=== PATIENT | male | born 1945 | race Caucasian/White ===

== ENCOUNTER 2019-06-06 04:37 | Emergency (ER) | payer MEDICARE, BC ==
[2019-06-06 04:48] VITALS: BP 152/73; PULSE 67
--- NOTE | 2019-06-06 06:13 | EDM.PDOC ---
ED HPI GENERAL MEDICAL PROBLEM - General Chief Complaint: Genitourinary Problem Stated Complaint: BLOOD IN URINE Time Seen by Provider: 06/06/19 06:00 Source of Information: Reports: Patient, Family History Limitations: Reports: No Limitations - History of Present Illness INITIAL COMMENTS - FREE TEXT/NARRATIVE: 73-year-old male who had bilateral stents placed 4 days ago at [facility], he has a urostomy for the past 10 years after surgery for prostate cancer. He has no symptoms but it's very bloody over the past 6-12 hours so he came in to be checked. No fevers or chills, no pain, no clots or obstruction. It was clear the first 2 days, then turned to a creamy red and now more clear red urine. He has had urostomy stents twice before and has not had this problem which is why he is concerned. He is not on Plavix and aspirin. Onset: Unknown/Unsure (Developed overnight) Associated Symptoms: Reports: No Other Symptoms. Denies: Fever/Chills, Nausea/ Vomiting right flank Pain Score (Numeric/FACES): 3 hands & feet Pain Score (Numeric/FACES): 5 - Related Data Allergies Allergy/AdvReac Type Severity Reaction Status Date / Time nitrofurantoin Allergy Rash Verified 06/06/19 04:43 [From Macrobid] nitrofurantoin Allergy Rash Verified 06/06/19 04:43 macrocrystalline [From Macrobid] Sulfa (Sulfonamide Allergy Rash Verified 06/06/19 04:43 Antibiotics) Home Meds: Home Meds *Multivitamin 1 tab PO DAILY 09/24/13 [History] Gabapentin [Gralise] 1,200 mg PO TID 09/24/13 [History] Insulin Aspart [NovoLOG] 8 - 15 unit SQ TID 09/24/13 [History] Insulin Glarg,Human.Rec.Analog [Lantus] 35 unit SUBCUT QPM 09/24/13 [History] busPIRone [Buspar] 15 mg PO TID 09/24/13 [History] Acetaminophen [Tylenol Extra Strength] 1,000 mg PO BID PRN 08/23/14 [History] Aspirin [Ecotrin EC] 81 mg PO DAILY 08/23/14 [History] Docusate Sodium 100 mg PO BID PRN 08/23/14 [History] Triamcinolone Acetonide [Triamcinolone Acetonide 0.1% Crm] 1 dose TOP TID PRN [History] Insulin Glarg,Human.Rec.Analog [Lantus] 20 unit SUBCUT QAM 04/30/15 [History] Clopidogrel [Plavix] 75 mg PO DAILY 06/06/19 [History] Lactobac Cmb #3/Fos/Pantethine [Probiotic & Acidophilus] 1 each PO DAILY [History] Metoprolol Tartrate [Lopressor] 25 mg PO BID 06/06/19 [History] atorvaSTATin [Lipitor] 20 mg PO BEDTIME 06/06/19 [History] raNITIdine HCl [Ranitidine HCl] 150 mg PO DAILY 06/06/19 [History] Past Medical History HEENT History: Reports: Impaired Vision Cardiovascular History: Reports: CAD, High Cholesterol, Hypertension, NV, PVD, Stents Gastrointestinal History: Reports: Colon Polyp, GERD, GI Bleed Genitourinary History: Reports: Chronic Renal Insuffiency, Pyelonephritis Musculoskeletal History: Reports: Fibromyalgia, Other (See Below) Other Musculoskeletal History: chronic left knee pain Neurological History: Reports: Migraines, Neuropathy, Diabetic Psychiatric History: Reports: Anxiety, Depression, Panic Attack, PTSD Endocrine/Metabolic History: Reports: Diabetes, Type II, Obesity/BMI 30+ Hematologic History: Reports: Anemia, Anticoagulation Therapy, Blood Transfusion (s) Oncologic (Cancer) History: Reports: Bladder, Prostate Dermatologic History: Reports: Other (See Below) Other Dermatologic History: some sort of rash on forearm that comes and goes - Infectious Disease History Infectious Disease History: Reports: C-Difficile, Chicken Pox, Measles, Pertussis (Whooping Cough), Other (See Below) Other Infectious Disease History: infectious hepatitis in 1960s - Past Surgical History Cardiovascular Surgical History: Reports: Coronary Artery Stent GI Surgical History: Reports: Colonoscopy, Small Bowel Male Surgical History: Reports: Cystectomy, Prostatectomy, Ureteral Stent Neurological Surgical History: Reports: Other (See Below) Other Neurological Surgeries/Procedures: L4 L5 stenosis Musculoskeletal Surgical History: Reports: Knee Replacement Social & Family History - Tobacco Use Smoking Status *Q: Former Smoker Used Tobacco, but Quit: Yes Month/Year Tobacco Last Used: 1988 - Caffeine Use Caffeine Use: Reports: Soda - Recreational Drug Use Recreational Drug Use: No ED ROS GENERAL - Review of Systems Review Of Systems: See Below Constitutional: Denies: Fever, Chills Respiratory: Denies: Shortness of Breath Cardiovascular: Denies: Chest Pain GI/Abdominal: Denies: Abdominal Pain : Reports: Hematuria Skin: Reports: No Symptoms ED EXAM, RENAL/ - Physical Exam Exam: See Below Exam Limited By: No Limitations General Appearance: Alert, No Apparent Distress Respiratory/Chest: No Respiratory Distress GI/Abdominal: Soft, Non-Tender (Male) Exam: Other (Urostomy bag has 2 stents in the bag, clear red urine) Neurological: Alert, Oriented Skin Exam: Warm, Dry Course - Vital Signs Last Recorded V/S: Last Vital Signs Temp 98.5 F 06/06/19 04:47 Pulse 67 06/06/19 04:47 Resp 18 06/06/19 04:47 BP 152/73 H 06/06/19 04:47 Pulse Ox 96 06/06/19 04:47 - Orders/Labs/Meds Labs: Laboratory Tests 06/06/19 06/06/19 06/06/19 Range/Units 05:15 05:25 05:25 WBC 9.9 (4.5-11.0) K/uL RBC 4.16 L (4.30-5.90) M/uL Hgb 11.7 L (12.0-15.0) g/dL Hct 35.1 L (40.0-54.0) % MCV 84 (80-98) fL MCH 28 (27-31) pg MCHC 33 (32-36) % Plt Count 185 (150-400) K/uL Neut % (Auto) 75 H (36-66) % Lymph % (Auto) 12 L (24-44) % [place] % (Auto) 10 H (2-6) % Eos % (Auto) 2 (2-4) % Baso % (Auto) 0 (0-1) % PT 10.1 (9.5-12.0) sec INR 0.93 (0.80-1.20) Sodium (140-148) mmol/L Potassium (3.6-5.2) mmol/L Chloride (100-108) mmol/L Carbon Dioxide (21-32) mmol/L Anion Gap (5.0-14.0) mmol/L BUN (7-18) mg/dL Creatinine (0.8-1.3) mg/dL Est Cr Clr Drug Dosing mL/min Estimated GFR (MDRD) (>60) Glucose (74-106) mg/dL Calcium (8.5-10.1) mg/dL Total Bilirubin (0.2-1.0) mg/dL AST (15-37) U/L ALT (12-78) U/L Alkaline Phosphatase (46-116) U/L Total Protein (6.4-8.2) g/dL Albumin (3.4-5.0) g/dL Globulin (2.3-3.5) g/dL Albumin/Globulin Ratio (1.2-2.2) Urine Color Red A (YELLOW) Urine Appearance Cloudy A (CLEAR) Urine pH 7.0 (5.0-8.0) Ur Specific [place] 1.025 (1.008-1.030) Urine Protein >=300 H (NEGATIVE) mg/dL Urine Glucose (UA) 100 H (NEGATIVE) mg/dL Urine Ketones Negative (NEGATIVE) mg/dL Urine Occult Blood Large H (NEGATIVE) Urine Nitrite Negative (NEGATIVE) Urine Bilirubin Negative (NEGATIVE) Urine Urobilinogen Normal (0.2-1.0) EU/dL Ur Leukocyte Esterase Small (NEGATIVE) Urine RBC Packed H (0-5) Urine WBC 0-5 (0-5) Ur Epithelial Cells Not seen Amorphous Sediment Few Urine Bacteria Not seen Urine Mucus Not seen 06/06/19 Range/Units 05:25 WBC (4.5-11.0) K/uL RBC (4.30-5.90) M/uL Hgb (12.0-15.0) g/dL Hct (40.0-54.0) % MCV (80-98) fL MCH (27-31) pg MCHC (32-36) % Plt Count (150-400) K/uL Neut % (Auto) (36-66) % Lymph % (Auto) (24-44) % [place] % (Auto) (2-6) % Eos % (Auto) (2-4) % Baso % (Auto) (0-1) % PT (9.5-12.0) sec INR (0.80-1.20) Sodium 137 L (140-148) mmol/L Potassium 5.8 H (3.6-5.2) mmol/L Chloride 104 (100-108) mmol/L Carbon Dioxide 26 (21-32) mmol/L Anion Gap 12.8 (5.0-14.0) mmol/L BUN 22 H (7-18) mg/dL Creatinine 1.6 H (0.8-1.3) mg/dL Est Cr Clr Drug Dosing 41.73 mL/min Estimated GFR (MDRD) 43 L (>60) Glucose 272 H (74-106) mg/dL Calcium 8.7 (8.5-10.1) mg/dL Total Bilirubin 0.3 (0.2-1.0) mg/dL AST 8 L D (15-37) U/L ALT 19 (12-78) U/L Alkaline Phosphatase 93 (46-116) U/L Total Protein 7.1 (6.4-8.2) g/dL Albumin 2.9 L (3.4-5.0) g/dL Globulin 4.2 H (2.3-3.5) g/dL Albumin/Globulin Ratio 0.7 L (1.2-2.2) Urine Color (YELLOW) Urine Appearance (CLEAR) Urine pH (5.0-8.0) Ur Specific [place] (1.008-1.030) Urine Protein (NEGATIVE) mg/dL Urine Glucose (UA) (NEGATIVE) mg/dL Urine Ketones (NEGATIVE) mg/dL Urine Occult Blood (NEGATIVE) Urine Nitrite (NEGATIVE) Urine Bilirubin (NEGATIVE) Urine Urobilinogen (0.2-1.0) EU/dL Ur Leukocyte Esterase (NEGATIVE) Urine RBC (0-5) Urine WBC (0-5) Ur Epithelial Cells Amorphous Sediment Urine Bacteria Urine Mucus - Re-Assessments/Exams Free Text/Narrative Re-Assessment/Exam: 06/06/19 06:27 A UA was obtained and is grossly bloody but there is no infection present. Hemoglobin is 11.7. 06/06/19 06:28 Creatinine is 1.7, GFR is 43. Potassium 5.8. His condition was discussed with urology at [facility]. 06/06/19 06:39 Conversation with urology was very reassuring. They will return if he develops pain or fever, bleeding can be present for 1-2 weeks after the procedure. Hemoglobin can be rechecked if hematuria continues to seem heavy. Departure - Departure Time of Disposition: 06:47 Disposition: Home, Self-Care 01 Condition: Good Clinical Impression: Hematuria Qualifiers: Hematuria type: gross Qualified Code(s): R31.0 - Gross hematuria - Discharge Information Instructions: Hematuria, Adult Referrals: True Chan MD [Primary Care Provider] - Forms: ED Department Discharge Care Plan Goals: Continue your current medications, urostomy care, and activity as tolerated and return if worsening such as fever or unexplained pain. Also consider rechecking in 3-5 days if hematuria persists to recheck your hemoglobin and vital signs.
== END 2019-06-06 06:48 | disposition home or self-care (01) ==
LOC: JP.ED 04:37
DX: R31.0 Gross hematuria (principal); E11.22 Type 2 diabetes mellitus with diabetic chronic kidney disease; I12.9 Hypertensive chronic kidney disease with stage 1 through stage 4 chronic kidney disease, or unspecified chronic kidney disease; N18.9 Chronic kidney disease, unspecified; D63.1 Anemia in chronic kidney disease; F32.9 Major depressive disorder, single episode, unspecified; F41.9 Anxiety disorder, unspecified; E78.00 Pure hypercholesterolemia, unspecified; Z88.2 Allergy status to sulfonamides; Z79.899 Other long term (current) drug therapy; Z79.82 Long term (current) use of aspirin; Z79.4 Long term (current) use of insulin; Z68.20 Body mass index [BMI] 20.0-20.9, adult; Z86.2 Personal history of diseases of the blood and blood-forming organs and certain disorders involving the immune mechanism; Z88.6 Allergy status to analgesic agent; Z90.6 Acquired absence of other parts of urinary tract; Z90.79 Acquired absence of other genital organ(s); Z87.891 Personal history of nicotine dependence
CPT/HCPCS: 36415; 80053; 81001; 85025; 85610; 99283

== ENCOUNTER 2021-11-11 00:40 | Observation (INO) | payer MEDICARE, BC ==
[2021-11-11 01:41] LABS: CORONAVIRUS COVID-19 NAA NEGATIVE (NEGATIVE)
[2021-11-11] MEDS ORDERED: Sodium Chloride 0.9% 10 ML Syringe FLUSH PRN (02:46)
[2021-11-11] MEDS: cefTRIAXone 1 GM in Sodium Chloride 0.9% 50 ML IV SCH ×2 (03:05→15:17)
[2021-11-11] MEDS ORDERED: Magnesium Hydroxide 400 MG/5 ML Susp 30 ML Cup PO PRN (15:05)
[2021-11-11] MEDS ORDERED: Ondansetron 4 MG/2 ML SDV IV PRN (15:05)
[2021-11-11] MEDS ORDERED: Ondansetron 4 MG Tab.DIS PO PRN (15:05)
[2021-11-11] MEDS ORDERED: Sodium Chloride 0.9% 1,000 ML IV SCH (15:15)
[2021-11-11] MEDS: Insulin Lispro 100 Unit/ML 3 ML KwikPen SUBCUT SCH (17:25)
[2021-11-11] MEDS: Acetaminophen 325 MG Tab PO PRN (20:11)
[2021-11-11] MEDS: Lactobacillus Rhamnosus GG (Probiotic) Cap PO SCH (20:12)
[2021-11-11] MEDS: Gabapentin 400 MG Cap PO SCH (20:12)
[2021-11-11] MEDS: busPIRone 10 MG Tab PO SCH (20:12)
[2021-11-11] MEDS: Metoprolol Tartrate 25 MG Tab PO SCH (20:12)
[2021-11-11] MEDS: atorvaSTATin 20 MG Tab PO SCH (20:12)
[2021-11-11] MEDS: Citalopram 20 MG Tab PO SCH (20:13)
[2021-11-11] MEDS: Insulin Glargine,Human Rec. Analog 100 Units/ML 3 ML Pen SUBCUT SCH (21:10)
[2021-11-12] MEDS: Acetaminophen 325 MG Tab PO PRN (00:20)
[2021-11-12] MEDS: cefTRIAXone 1 GM in Sodium Chloride 0.9% 50 ML IV SCH ×2 (02:25→14:34)
[2021-11-12] MEDS: Metoprolol Tartrate 25 MG Tab PO SCH ×2 (08:48→21:27)
[2021-11-12] MEDS: Aspirin 81 MG Tab.EC PO SCH (08:48)
[2021-11-12] MEDS: Gabapentin 400 MG Cap PO SCH ×3 (08:48→21:26)
[2021-11-12] MEDS: Lactobacillus Rhamnosus GG (Probiotic) Cap PO SCH ×2 (08:48→21:27)
[2021-11-12] MEDS: busPIRone 10 MG Tab PO SCH ×3 (08:48→21:27)
[2021-11-12] MEDS: Insulin Lispro 100 Unit/ML 3 ML KwikPen SUBCUT SCH ×3 (08:49→17:26)
[2021-11-12] MEDS: Insulin Glargine,Human Rec. Analog 100 Units/ML 3 ML Pen SUBCUT SCH ×2 (08:50→21:27)
[2021-11-12] MEDS: atorvaSTATin 20 MG Tab PO SCH (21:26)
[2021-11-12] MEDS: Citalopram 20 MG Tab PO SCH (21:27)
[2021-11-13] MEDS: cefTRIAXone 1 GM in Sodium Chloride 0.9% 50 ML IV SCH (03:22)
[2021-11-13] MEDS: Metoprolol Tartrate 25 MG Tab PO SCH (08:30)
[2021-11-13] MEDS: Aspirin 81 MG Tab.EC PO SCH (08:31)
[2021-11-13] MEDS: Insulin Glargine,Human Rec. Analog 100 Units/ML 3 ML Pen SUBCUT SCH (08:31)
[2021-11-13] MEDS: Lactobacillus Rhamnosus GG (Probiotic) Cap PO SCH (08:31)
[2021-11-13] MEDS: Gabapentin 400 MG Cap PO SCH (08:31)
[2021-11-13] MEDS: busPIRone 10 MG Tab PO SCH (08:31)
[2021-11-13] MEDS: Insulin Lispro 100 Unit/ML 3 ML KwikPen SUBCUT SCH (08:32)
[2021-11-13 10:25] VITALS: BP 104/45; PULSE 60
== END 2021-11-13 11:55 | disposition home health service (06) ==
LOC: JP.ED 00:40 → JP.MS 15:41
PROVIDERS: ADMIT Internal Medicine; ATTEND Internal Medicine
DX: N39.0 Urinary tract infection, site not specified (principal); I25.10 Atherosclerotic heart disease of native coronary artery without angina pectoris; E78.00 Pure hypercholesterolemia, unspecified; I25.2 Old myocardial infarction; I12.9 Hypertensive chronic kidney disease with stage 1 through stage 4 chronic kidney disease, or unspecified chronic kidney disease; E11.22 Type 2 diabetes mellitus with diabetic chronic kidney disease; E66.9 Obesity, unspecified; N18.32 Chronic kidney disease, stage 3b; Z20.822 Contact with and (suspected) exposure to COVID-19; Z88.8 Allergy status to other drugs, medicaments and biological substances; Z88.2 Allergy status to sulfonamides; Z79.899 Other long term (current) drug therapy; Z79.82 Long term (current) use of aspirin; Z79.4 Long term (current) use of insulin; Z90.49 Acquired absence of other specified parts of digestive tract; Z98.890 Other specified postprocedural states
CPT/HCPCS: 0241U; 36415; 80048; 80053; 81001; 82947; 83605; 85025; 85027; 86140; 87086; 87088; 87186; 96365; 96366; 97110; 97116; 97162; 97530; 99285; A9270; J0696; J1815; J2405; J7030

== ENCOUNTER 2022-11-12 18:07 | Inpatient (IN) | payer BC, MEDICARE ==
[2022-11-12] MEDS ORDERED: Sodium Chloride 0.9% 1,000 ML IV SCH (18:30)
[2022-11-12] MEDS ORDERED: cefTRIAXone 2 GM in Sodium Chloride 0.9% 50 ML IV ONE (18:59)
[2022-11-12 19:28] LABS: ESTIMATED GFR 52 mL/min (>60)
[2022-11-12 19:30] LABS: CORONAVIRUS COVID-19 NAA NEGATIVE (NEGATIVE)
[2022-11-12] MEDS: Acetaminophen 325 MG Tab PO PRN (20:27)
[2022-11-12] MEDS ORDERED: Magnesium Hydroxide 400 MG/5 ML Susp 30 ML Cup PO PRN (21:15)
[2022-11-12] MEDS ORDERED: Insulin Lispro 100 Unit/ML 3 ML KwikPen SUBCUT SCH (21:15)
[2022-11-12] MEDS ORDERED: Ondansetron 4 MG Tab.DIS PO PRN (21:15)
[2022-11-12] MEDS ORDERED: Ondansetron 4 MG/2 ML SDV IV PRN (21:15)
[2022-11-12] MEDS ORDERED: Melatonin 3 MG Tab PO PRN (21:15)
[2022-11-12] MEDS: Gabapentin 300 MG Cap PO SCH (21:51)
[2022-11-12] MEDS: Nystatin Topical Powder 15 GM Bottle TOP SCH (21:57)
[2022-11-12] MEDS: Insulin Lispro 100 Unit/ML 3 ML KwikPen SUBCUT SCH (21:59)
[2022-11-12] MEDS ORDERED: Citalopram 20 MG Tab PO SCH (22:00)
[2022-11-12] MEDS ORDERED: busPIRone 5 MG Tab PO SCH (22:00)
[2022-11-12] MEDS ORDERED: cefTRIAXone 1 GM in Sodium Chloride 0.9% 50 ML IV SCH (23:00)
[2022-11-13] MEDS: Sodium Chloride 0.9% 1,000 ML IV SCH (00:14)
[2022-11-13] MEDS: Acetaminophen 325 MG Tab PO PRN (03:06)
[2022-11-13] MEDS: Nystatin Topical Powder 15 GM Bottle TOP SCH ×4 (05:54→21:13)
[2022-11-13] MEDS ORDERED: cefTRIAXone 1 GM in Sodium Chloride 0.9% 50 ML IV SCH ×2 (07:00→08:00)
[2022-11-13] MEDS: Insulin Lispro 100 Unit/ML 3 ML KwikPen SUBCUT SCH ×4 (07:50→21:06)
[2022-11-13] MEDS: Lactobacillus Rhamnosus GG (Probiotic) Cap PO SCH ×2 (08:20→20:08)
[2022-11-13] MEDS: Aspirin 81 MG Tab.EC PO SCH (08:20)
[2022-11-13] MEDS: busPIRone 10 MG Tab PO SCH ×3 (08:20→20:08)
[2022-11-13] MEDS: Metoprolol Tartrate 50 MG Tab PO SCH ×2 (08:21→20:08)
[2022-11-13] MEDS: Gabapentin 300 MG Cap PO SCH ×3 (08:21→20:08)
[2022-11-13] MEDS: Enoxaparin 40 MG/0.4 ML Syringe SUBCUT SCH (08:21)
[2022-11-13] MEDS: Cholecalciferol (Vitamin D3) 25 MCG Tab PO SCH (08:22)
[2022-11-13] MEDS: Insulin Glargine,Human Rec. Analog 100 Units/ML 3 ML Pen SUBCUT SCH ×2 (08:27→21:08)
[2022-11-13] MEDS ORDERED: Insulin Glargine,Human Rec. Analog 100 Units/ML 3 ML Pen SUBCUT SCH (09:00)
[2022-11-13] MEDS ORDERED: Ciprofloxacin in D5W 400 MG in Premix Bag 1 BAG IV ONE ×2 (09:00)
[2022-11-13] MEDS: atorvaSTATin 20 MG Tab PO SCH (20:08)
[2022-11-13] MEDS: Citalopram 10 MG Tab PO SCH (20:08)
[2022-11-14] MEDS: Sodium Chloride 0.9% 1,000 ML IV SCH (04:20)
[2022-11-14] MEDS: Nystatin Topical Powder 15 GM Bottle TOP SCH ×4 (05:24→21:23)
[2022-11-14] MEDS: Insulin Lispro 100 Unit/ML 3 ML KwikPen SUBCUT SCH ×4 (08:13→21:03)
[2022-11-14] MEDS: busPIRone 10 MG Tab PO SCH ×3 (08:13→20:34)
[2022-11-14] MEDS: Lactobacillus Rhamnosus GG (Probiotic) Cap PO SCH ×2 (08:13→20:34)
[2022-11-14] MEDS: Aspirin 81 MG Tab.EC PO SCH (08:14)
[2022-11-14] MEDS: Enoxaparin 40 MG/0.4 ML Syringe SUBCUT SCH (08:14)
[2022-11-14] MEDS: Gabapentin 300 MG Cap PO SCH ×3 (08:14→20:33)
[2022-11-14] MEDS: Metoprolol Tartrate 50 MG Tab PO SCH ×2 (08:14→20:35)
[2022-11-14] MEDS: Cholecalciferol (Vitamin D3) 25 MCG Tab PO SCH (08:14)
[2022-11-14] MEDS: Insulin Glargine,Human Rec. Analog 100 Units/ML 3 ML Pen SUBCUT SCH ×2 (08:16→21:04)
[2022-11-14] MEDS: Ciprofloxacin in D5W 400 MG in Premix Bag 1 BAG IV SCH ×2 (13:16)
[2022-11-14] MEDS: atorvaSTATin 20 MG Tab PO SCH (20:34)
[2022-11-14] MEDS: Citalopram 10 MG Tab PO SCH (20:35)
[2022-11-15] MEDS: Ciprofloxacin in D5W 400 MG in Premix Bag 1 BAG IV SCH ×4 (00:21→13:58)
[2022-11-15] MEDS: Nystatin Topical Powder 15 GM Bottle TOP SCH ×4 (06:22→21:24)
[2022-11-15] MEDS: Insulin Lispro 100 Unit/ML 3 ML KwikPen SUBCUT SCH ×4 (07:27→21:17)
[2022-11-15] MEDS: Enoxaparin 40 MG/0.4 ML Syringe SUBCUT SCH (08:02)
[2022-11-15] MEDS: Lactobacillus Rhamnosus GG (Probiotic) Cap PO SCH ×2 (08:03→21:23)
[2022-11-15] MEDS: busPIRone 10 MG Tab PO SCH ×3 (08:03→21:23)
[2022-11-15] MEDS: Gabapentin 300 MG Cap PO SCH ×3 (08:03→21:23)
[2022-11-15] MEDS: Cholecalciferol (Vitamin D3) 25 MCG Tab PO SCH (08:03)
[2022-11-15] MEDS: Metoprolol Tartrate 50 MG Tab PO SCH ×2 (08:04→21:24)
[2022-11-15] MEDS: Aspirin 81 MG Tab.EC PO SCH (08:04)
[2022-11-15] MEDS: Insulin Glargine,Human Rec. Analog 100 Units/ML 3 ML Pen SUBCUT SCH ×2 (08:05→21:23)
[2022-11-15] MEDS: Citalopram 10 MG Tab PO SCH (21:23)
[2022-11-15] MEDS: atorvaSTATin 20 MG Tab PO SCH (21:23)
[2022-11-16] MEDS: Ciprofloxacin in D5W 400 MG in Premix Bag 1 BAG IV SCH ×4 (00:27→12:12)
[2022-11-16] MEDS: Nystatin Topical Powder 15 GM Bottle TOP SCH ×2 (05:53→09:20)
[2022-11-16] MEDS: Insulin Lispro 100 Unit/ML 3 ML KwikPen SUBCUT SCH ×2 (07:45→12:07)
[2022-11-16] MEDS: busPIRone 10 MG Tab PO SCH ×2 (08:03→13:05)
[2022-11-16] MEDS: Insulin Glargine,Human Rec. Analog 100 Units/ML 3 ML Pen SUBCUT SCH (08:03)
[2022-11-16] MEDS: Lactobacillus Rhamnosus GG (Probiotic) Cap PO SCH (08:03)
[2022-11-16] MEDS: Cholecalciferol (Vitamin D3) 25 MCG Tab PO SCH (08:03)
[2022-11-16] MEDS: Gabapentin 300 MG Cap PO SCH ×2 (08:04→13:05)
[2022-11-16] MEDS: Metoprolol Tartrate 50 MG Tab PO SCH (08:04)
[2022-11-16] MEDS: Enoxaparin 40 MG/0.4 ML Syringe SUBCUT SCH (08:04)
[2022-11-16] MEDS: Aspirin 81 MG Tab.EC PO SCH (08:04)
[2022-11-16 10:08] VITALS: BP 143/51; PULSE 54
== END 2022-11-16 15:10 | disposition home or self-care (01) | DRG 872 ==
LOC: JP.ED 18:07 → JP.MS 21:00
PROVIDERS: ADMIT Internal Medicine; ATTEND Hospitalist
DX: A41.51 Sepsis due to Escherichia coli [E. coli] (principal); R53.1 Weakness; N39.0 Urinary tract infection, site not specified; I10 Essential (primary) hypertension; E11.9 Type 2 diabetes mellitus without complications; Z68.41 Body mass index [BMI] 40.0-44.9, adult; T83.593A Infection and inflammatory reaction due to other urinary stents, initial encounter; N18.32 Chronic kidney disease, stage 3b; G30.9 Alzheimer's disease, unspecified; Z20.822 Contact with and (suspected) exposure to COVID-19; F02.80 Dementia in other diseases classified elsewhere, unspecified severity, without behavioral disturbance, psychotic disturbance, mood disturbance, and anxiety; H54.7 Unspecified visual loss; E78.00 Pure hypercholesterolemia, unspecified; I25.10 Atherosclerotic heart disease of native coronary artery without angina pectoris; Z93.6 Other artificial openings of urinary tract status; E11.51 Type 2 diabetes mellitus with diabetic peripheral angiopathy without gangrene; K21.9 Gastro-esophageal reflux disease without esophagitis; M79.7 Fibromyalgia; G89.29 Other chronic pain; M25.562 Pain in left knee; G43.909 Migraine, unspecified, not intractable, without status migrainosus; E11.40 Type 2 diabetes mellitus with diabetic neuropathy, unspecified; F41.9 Anxiety disorder, unspecified; F32.A Depression, unspecified; F43.10 Post-traumatic stress disorder, unspecified; E66.9 Obesity, unspecified; Z96.0 Presence of urogenital implants; Z96.659 Presence of unspecified artificial knee joint; D64.9 Anemia, unspecified; Z79.01 Long term (current) use of anticoagulants; Z85.46 Personal history of malignant neoplasm of prostate; Z98.890 Other specified postprocedural states; Z85.51 Personal history of malignant neoplasm of bladder; Z79.4 Long term (current) use of insulin; Z79.899 Other long term (current) drug therapy; Z79.82 Long term (current) use of aspirin; Z88.1 Allergy status to other antibiotic agents; Z88.2 Allergy status to sulfonamides; I25.2 Old myocardial infarction; Z95.5 Presence of coronary angioplasty implant and graft; Z86.010 Personal history of colon polyps; Z86.19 Personal history of other infectious and parasitic diseases; Z87.891 Personal history of nicotine dependence; Z23 Encounter for immunization; Y83.9 Surgical procedure, unspecified as the cause of abnormal reaction of the patient, or of later complication, without mention of misadventure at the time of the procedure
CPT/HCPCS: 0241U; 36415; 71045; 71045-26; 80048; 80053; 81001; 82947; 83605; 85025; 85027; 87040; 87086; 87088; 87186; 90662; 96361; 96365; 97110-GP; 97162-GP; 97165-GO; 97530-GP; 99223; 99233; 99238; 99285; 99285-25; A9270-GY; G0008; J0696; J0713; J0744; J1650; J1815; J1815-GY; J3490; J7030

== ENCOUNTER 2023-01-28 17:25 | Emergency (ER) | payer MEDICARE ==
[2023-01-28] MEDS ORDERED: Sodium Chloride 0.9% 10 ML Syringe FLUSH PRN (18:08)
[2023-01-28] MEDS ORDERED: Cefepime 2 GM in Sodium Chloride 0.9% 50 ML IV ONE (18:36)
[2023-01-28] MEDS ORDERED: Vancomycin 2 GM in Sodium Chloride 0.9% 500 ML IV ONE (18:36)
[2023-01-28 18:45] LABS: ESTIMATED GFR 41 mL/min (>60)
[2023-01-28 19:05] LABS: CORONAVIRUS COVID-19 NAA NEGATIVE (NEGATIVE)
[2023-01-28] MEDS ORDERED: Sodium Chloride 0.9% 1,000 ML IV SCH (19:15)
[2023-01-28] MEDS ORDERED: Metoprolol Tartrate 25 MG Tab PO ONE (19:31)
[2023-01-28] MEDS ORDERED: 50% Dextrose in Water 50 ML Syringe IVPUSH PRN ×2 (20:53→21:00)
[2023-01-28] MEDS ORDERED: Glucagon,Human Recombinant 1 MG Vial IM PRN ×2 (20:53→21:00)
[2023-01-28] MEDS ORDERED: Insulin Glargine,Human Rec. Analog 100 Units/ML 3 ML Pen SUBCUT SCH ×2 (21:00)
[2023-01-28 21:21] VITALS: BP 141/49; PULSE 79
== END 2023-01-28 23:00 ==
LOC: JP.ED 17:25
DX: N39.0 Urinary tract infection, site not specified (principal); I25.10 Atherosclerotic heart disease of native coronary artery without angina pectoris; I12.9 Hypertensive chronic kidney disease with stage 1 through stage 4 chronic kidney disease, or unspecified chronic kidney disease; E11.22 Type 2 diabetes mellitus with diabetic chronic kidney disease; N18.32 Chronic kidney disease, stage 3b; E78.5 Hyperlipidemia, unspecified; E78.00 Pure hypercholesterolemia, unspecified; E11.40 Type 2 diabetes mellitus with diabetic neuropathy, unspecified; E66.9 Obesity, unspecified; Z88.1 Allergy status to other antibiotic agents; Z88.2 Allergy status to sulfonamides; Z79.899 Other long term (current) drug therapy; Z79.4 Long term (current) use of insulin; Z20.822 Contact with and (suspected) exposure to COVID-19; Z93.6 Other artificial openings of urinary tract status; Z68.38 Body mass index [BMI] 38.0-38.9, adult
CPT/HCPCS: 0241U; 36415; 80053; 81001; 83605; 85025; 86140; 87040; 87077; 87186; 96361; 96365; 96366; 96367; 99284; A9270; J0692; J1815; J3370; J3490; J7030; J7040